=== PATIENT | female | born 1980 | race African-American/Black ===

== ENCOUNTER 2023-03-21 14:36 | Emergency (ER) | payer BC, MEDICAID ==
[~2023-03-21] VITALS: Ht 167.6 cm; Wt 80.0 kg
[2023-03-21 14:39] VITALS: BP 133/92; PULSE 55; RESP 16; TEMP 98.4; O2SAT 98
== END 2023-03-21 17:39 | disposition left against medical advice (07) ==
LOC: ER 14:36
DX: S06.0X0A Concussion without loss of consciousness, initial encounter (principal); Z88.5 Allergy status to narcotic agent; X58.XXXA Exposure to other specified factors, initial encounter; Y93.89 Activity, other specified; Y92.89 Other specified places as the place of occurrence of the external cause; Y99.8 Other external cause status
CPT/HCPCS: 99284